=== PATIENT | female | born 1980 | race Two or more races ===

== ENCOUNTER 2021-11-30 01:38 | Observation (INO) | payer SELFPAY ==
[~2021-11-30] VITALS: Ht 167.6 cm; Wt 72.3 kg
[2021-11-30] MEDS ORDERED: IV NORMAL SALINE 1000ML BAG 1,000 ML IV ONE (02:30)
[2021-11-30] MEDS ORDERED: fentaNYL PF VIAL 100 MCG/2 ML VIAL IVP ONE (02:30)
[2021-11-30 02:36] LABS: BASO % 0 % (0-3); EOS # 0.1 x10^3/uL (0.0-0.7); EOS % 1 % (0-3); HEMATOCRIT 30.8 % (36.0-47.0); HEMOGLOBIN 10.3 g/dL (12.0-15.5); LYMPH # 1.9 x10^3/uL (1.0-4.8); LYMPH % 13 % (24-48); MEAN CORPUSCULAR HEMOGLOBIN 30 pg (25-35); MEAN CORPUSCULAR HGB CONC 33 g/dL (31-37); MEAN CORPUSCULAR VOLUME 90 fL (79-100); MONO # 0.6 x10^3/uL (0.0-1.1); MONO % 4 % (0-9); NEUT % 82 % (31-73); PLATELET COUNT 351 x10^3/uL (140-400); RED BLOOD COUNT 3.41 x10^6/uL (3.50-5.40); RED CELL DISTRIBUTION WIDTH 13.6 % (11.5-14.5); WHITE BLOOD COUNT 14.6 x10^3/uL (4.0-11.0)
[2021-11-30 02:45] LABS: PROTHROMBIN TIME PATIENT 13.5 SEC (11.7-14.0)
[2021-11-30 02:46] LABS: CALCIUM 8.1 mg/dL (8.5-10.1); CREATININE 0.8 mg/dL (0.6-1.0); GFR 79.9; POTASSIUM 3.7 mmol/L (3.5-5.1)
[2021-11-30 02:52] LABS: PREG TEST PT QUAL NEGATIVE (NEG)
[2021-11-30] MEDS ORDERED: IOHEXOL 300 MG/ML 100ML VIAL. IV ONE (03:15)
--- NOTE | 2021-11-30 03:40 | RAD ---
CT ABDOMEN+PELVIS W History: Abdominal pain, rectal pain and bleeding. Trauma. Comparison: None. Technique: CT of the abdomen and pelvis with intravenous contrast. Findings: Lung bases are clear. The liver contains a segment 8 1.8 cm hypodensity with peripheral nodular enhan cement consistent with hemangioma. Additional 6 mm hypoattenuation in segment 5 is too small to lionel cterize but most likely benign cyst or hemangioma. The gallbladder, pancreas, spleen, adrenal glands and kidneys are unremarkable. Stomach and small bowel are within normal limits. Normal appendix. No colonic wall thickening or imer colonic inflammatory changes. The bladder, uterus and adnexa are within normal limits. No free intraperitoneal air or free fluid. The abdominal pelvic vasculature is within normal limits. No adenopathy. Osseous structures and soft tissues are unremarkable. Impression: 1. No acute abdominopelvic findings. ------ Exposure: One or more of the following individualized dose reduction techniques were utilized for thi s examination: 1. Automated exposure control 2. Adjustment of the mA and/or kV according to patient size 3. Use of iterative reconstruction technique. Electronically signed by: Chris Nieto MD (11/30/2021 3:38 AM) [facility]
--- NOTE | 2021-11-30 03:59 | PHYS DOC ---
General Adult EDM: Chief Complaint: VAGINAL BLEEDING HPI: HPI: Patient is a 41 year old male who presents by private vehicle with heavy rectal bleeding. Symptoms began after having anal intercourse with her . She reports this was consensual. She is also currently on her period, but she denies any heavy vaginal bleeding. LMP prior to this was about 1 month ago. She does report some pelvic and abdominal discomfort. She reports that she has some heavy rectal bleeding and she has not been able to get it to stop at home. She denies any assault or nonconsensual intercourse. She denies that her anus was instrumented with anything other than her 's genitalia. She denies dizziness, syncope, fever, chills, nausea, vomiting. Review of Systems: Review of Systems: Constitutional: Denies fever or chills. [] HENT: Denies nasal congestion or sore throat. [] Respiratory: Denies cough or shortness of breath. [] Cardiovascular: Denies chest pain or edema. [] GI: She reports abdominal discomfort. Denies nausea, vomiting. Spontaneous and heavy bright red rectal bleeding : Denies urinary symptoms. Current vaginal bleeding with current menses. Musculoskeletal: Denies back pain or joint pain. [] Integument: Denies rash. [] Neurologic: Denies headache, focal weakness or sensory changes. Denies dizziness or syncope. Psychiatric: Anxiety as it pertains to current clinical condition. Heart Score: C/O Chest Pain: No Risk Factors: Risk Factors: DM, Current or recent (<one month) smoker, HTN, HLP, family history of CAD, obesity. Risk Scores: Score 0 - 3: 2.5% MACE over next 6 weeks - Discharge Home Score 4 - 6: 20.3% MACE over next 6 weeks - Admit for Clinical Observation Score 7 - 10: 72.7% MACE over next 6 weeks - Early Invasive Strategies Current Medications: Current Medications Medications (Trade) Dose Ordered Sig/[facility] Start Time Stop Time Status Last Admin Dose Admin Fentanyl Citrate (Fentanyl 2ml Vial) 50 mcg 1X ONCE 11/30/21 02:30 11/30/21 03:06 DC Iohexol (Omnipaque 300 Mg/ml) 75 ml 1X ONCE 11/30/21 03:15 11/30/21 03:16 DC 11/30/21 03:15 75 ML Sodium Chloride 1,000 ml @ 1,000 mls/hr 1X ONCE 11/30/21 02:30 11/30/21 03:29 DC 11/30/21 02:30 1,000 MLS/HR Allergies: Allergies: Allergies Coded Allergies Type Severity Reaction Last Updated Verified No Known Drug Allergies 11/30/21 No Physical Exam: PE: Constitutional: Well developed, well nourished, no acute distress, non-toxic appearance. [] HENT: Normocephalic, atraumatic Eyes: Sclera are anicteric, conjunctive are normal Neck: Trachea is midline Cardiovascular:Heart rate regular rhythm, +2 radial and +2 dorsalis pedis pulses Lungs & Thorax: Bilateral breath sounds clear to auscultation [] Abdomen: Abdomen is soft, nondistended, mildly tender to palpation diffusely in the lower abdominal and pelvic area. No focal tenderness. No guarding or rebound or rigidity. Normal bowel sounds. No palpable masses organomegaly. Rectal: There is a brisk amount of bright red blood spontaneously flowing from her rectum and anus. There are clots noted in her rectal vault. There does appear to be a rectal laceration noted on anoscopy, located at approximately 8:00. Skin: Warm, dry, no erythema, no rash. No diaphoresis, no pallor. Back: No tenderness, no CVA tenderness. Full range of motion. Extremities: No tenderness, no cyanosis, no clubbing, ROM intact, no edema. No limb deformity. No calf tenderness. Neurologic: Alert and oriented X 3, normal motor function, normal sensory function, no focal deficits noted. [] Psychologic: He is anxious but cooperative and pleasant. Current Patient Data: Labs: Laboratory Tests Test 11/30/21 02:15 White Blood Count 14.6 x10^3/uL (4.0-11.0) H Red Blood Count 3.41 x10^6/uL (3.50-5.40) L Hemoglobin 10.3 g/dL (12.0-15.5) L Hematocrit 30.8 % (36.0-47.0) L Mean Corpuscular Volume 90 fL (79-100) Mean Corpuscular Hemoglobin 30 pg (25-35) Mean Corpuscular Hemoglobin Concent 33 g/dL (31-37) Red Cell Distribution Width 13.6 % (11.5-14.5) Platelet Count 351 x10^3/uL (140-400) Neutrophils (%) (Auto) 82 % (31-73) H Lymphocytes (%) (Auto) 13 % (24-48) L Monocytes (%) (Auto) 4 % (0-9) Eosinophils (%) (Auto) 1 % (0-3) Basophils (%) (Auto) 0 % (0-3) Neutrophils # (Auto) 12.0 x10^3/uL (1.8-7.7) H Lymphocytes # (Auto) 1.9 x10^3/uL (1.0-4.8) Monocytes # (Auto) 0.6 x10^3/uL (0.0-1.1) Eosinophils # (Auto) 0.1 x10^3/uL (0.0-0.7) Basophils # (Auto) 0.0 x10^3/uL (0.0-0.2) Prothrombin Time 13.5 SEC (11.7-14.0) Prothrombin Time INR 1.1 (0.8-1.1) Activated Partial Thromboplast Time 28 SEC (24-38) Sodium Level 139 mmol/L (136-145) Potassium Level 3.7 mmol/L (3.5-5.1) Chloride Level 106 mmol/L (98-107) Carbon Dioxide Level 25 mmol/L (21-32) Anion Gap 8 (6-14) Blood Urea Nitrogen 14 mg/dL (7-20) Creatinine 0.8 mg/dL (0.6-1.0) Estimated GFR (Cockcroft-Gault) 79.9 Glucose Level 156 mg/dL (70-99) H Calcium Level 8.1 mg/dL (8.5-10.1) L Serum Test, Qualitative Negative (NEG) Laboratory Tests 11/30/21 02:15 Laboratory Tests 11/30/21 02:15 EKG: EKG: [] Radiology/Procedures: Radiology/Procedures: IMAGING REPORT Signed PATIENT: ERIKA CRUZ ACCOUNT: [id number] : 1980 LOCATION: ER AGE: 41 SEX: F EXAM STATUS: PRE ER ORD. PHYSICIAN: MICHAEL SORIA DO REASON: abd pain, rectal pain/bleeding, trauma, omni 300 75 ml iv PROCEDURE: CT ABD PELV W/ IV CONTRST ONLY CT ABDOMEN+PELVIS W History: Abdominal pain, rectal pain and bleeding. Trauma. Comparison: None. Technique: CT of the abdomen and pelvis with intravenous contrast. Findings: Lung bases are clear. The liver contains a segment 8 1.8 cm hypodensity with peripheral nodular enhancement consistent with hemangioma. Additional 6 mm hy poattenuation in segment 5 is too small to characterize but most likely benign cyst or hemangioma. The gallbladder, pancreas, spleen, adrenal glands and kidneys are unremarkable. Stomach and small bowel are within normal limits. Normal appendix. No colonic wall thickening or pericolonic inflammatory changes. The bladder, uterus and adnexa are within normal limits. No free intraperitoneal air or free fluid. The abdominal pelvic vasculature is within normal limits. No adenopathy. Osseous structures and soft tissues are unremarkable. Impression: 1. No acute abdominopelvic findings. ------ Exposure: One or more of the following individualized dose reduction techniques were utilized for this examination: 1. Automated exposure control 2. Adjustment of the mA and/or kV according to patient size 3. Use of iterative reconstruction technique. Electronically signed by: Chris Cartagena MD (11/30/2021 3:38 AM) [facility] DICTATED and SIGNED BY: CHRIS CARTAGENA MD DATE: 11/30/21329 Course & Med Decision Making: Course & Med Decision Making Pertinent Labs and Imaging studies reviewed. (See chart for details) Patient declined pain medication. She is given IV fluids. She is kept n.p.o. Initial hemoglobin is 10, she is unaware what her baseline hemoglobin is. She is hemodynamically stable. I examined her multiple times, and after several exams, the bleeding does appear to be improved and is well controlled at this time. I have recommended hospitalization, serial hemoglobin studies, general surgery and GI consultations. I spoke with Dr. Diego and Dr. Mondragon and informed them of the patient's pending admission and consults. The patient is accepted for admission by Dr. Duran. Ni Disclaimer: Ni Disclaimer: This electronic medical record was generated, in whole or in part, using a voice recognition dictation system. Departure Departure Impression: Primary Impression: Rectal bleeding Additional Impressions: Rectal laceration Qualified Codes: S36.63XA - Laceration of rectum, initial encounter Anemia Qualified Codes: D64.9 - Anemia, unspecified Disposition: 09 ADMITTED INPATIENT Admitting Physician: NATACHA (Dr. Duran) Condition: GUARDED ESTELLA,MICHAEL Reilly DO Nov 30, 2021 03:59
[2021-11-30] MEDS ORDERED: fentaNYL PF VIAL 100 MCG/2 ML VIAL IVP PRN (06:00)
[2021-11-30] MEDS ORDERED: ONDANSETRON PF 4 MG/2 ML VIAL. IVP PRN ×2 (06:00→08:45)
[2021-11-30] MEDS ORDERED: IV DEXTROSE 5 %-0.45 % NACL 1,000 ML IV ONE (06:00)
[2021-11-30 06:01] VITALS: BP 91/51
--- NOTE | 2021-11-30 07:58 | NUR ---
Consults called to both GI and general surgery, patient continues to bleed large amounts, CBC redrawn at this time, patient hypotensive, but otherwise vitals stable. Patient advised of strict bedrest status, at bedside, will continue to monitor.
[2021-11-30 08:00] LABS: BASO % 0 % (0-3); EOS % 1 % (0-3); HEMATOCRIT 26.9 % (36.0-47.0); HEMOGLOBIN 9.1 g/dL (12.0-15.5); LYMPH # 1.8 x10^3/uL (1.0-4.8); LYMPH % 19 % (24-48); MEAN CORPUSCULAR HEMOGLOBIN 30 pg (25-35); MEAN CORPUSCULAR HGB CONC 34 g/dL (31-37); MEAN CORPUSCULAR VOLUME 90 fL (79-100); MONO # 0.5 x10^3/uL (0.0-1.1); MONO % 5 % (0-9); NEUT # 7.2 x10^3/uL (1.8-7.7); NEUT % 76 % (31-73); PLATELET COUNT 267 x10^3/uL (140-400); RED BLOOD COUNT 2.99 x10^6/uL (3.50-5.40); RED CELL DISTRIBUTION WIDTH 13.7 % (11.5-14.5); WHITE BLOOD COUNT 9.5 x10^3/uL (4.0-11.0)
--- NOTE | 2021-11-30 08:34 | PDOC1 ---
History and Physical Date of Service: DOS: DATE: 11/30/21 TIME: 08:27 Chief Complaint: Chief Complain: Rectal bleeding. History of Present Illness: HPI: 41 year old male who presents by private vehicle with heavy rectal bleeding. Symptoms began after having consensual anal intercourse with her . She is also currently on her period, but she denies any heavy vaginal bleeding. LMP prior to this was about 1 month ago. She does report some pelvic and abdominal discomfort. She reports that she has some heavy rectal bleeding and she has not been able to get it to stop at home. She denies any intentional trauma or harm from significant other. She denies that her anus was instrumented with anything other than her 's genitalia. She denies dizziness, syncope, fever, chills, nausea, vomiting. Past Medical/Surgical History: PMH/PSH: No significant past medical or surgical history Allergies: Allergies: Coded Allergies: No Known Drug Allergies (Unverified , 11/30/21) Family History: Family History: Reviewed with no relative findings in the chart Social History: Social History: Denies any alcohol, drug or tobacco abuse Current Medications: Current Medications Current Medications Sodium Chloride 1,000 ml @ 1,000 mls/hr 1X ONCE IV Last administered on 11/30/21at 02:30; Start 11/30/21 at 02:30; Stop 11/30/21 at 03:29; Status DC Fentanyl Citrate (Fentanyl 2ml Vial) 50 mcg 1X ONCE IVP ; Start 11/30/21 at 02:30; Stop 11/30/21 at 03:06; Status DC Iohexol (Omnipaque 300 Mg/ml) 75 ml 1X ONCE IV Last administered on 11/30/21at 03:15; Start 11/30/21 at 03:15; Stop 11/30/21 at 03:16; Status DC Ondansetron HCl (Zofran) 4 mg PRN Q8HRS PRN IVP NAUSEA/VOMITING; Start 11/30/21 at 06:00; Stop 12/01/21 at 05:59 Dextrose/Sodium Chloride 1,000 ml @ 100 mls/hr 1X ONCE IV Last administered on 11/30/21at 07:17; Start 11/30/21 at 06:00; Stop 11/30/21 at 15:59 Fentanyl Citrate (Fentanyl 2ml Vial) 50 mcg PRN Q2HRS PRN IVP pain; Start 11/30/21 at 06:00 ROS: Review of Systems Review of System REVIEW OF SYSTEMS: GENERAL: Denies weakness SKIN: No bruising, hair changes or rashes. EYES: No blurred, double or loss of vision. NOSE AND THROAT: No history of nosebleeds, hoarseness or sore throat. HEART: No history of palpitations, chest pain or shortness of breath on exertion. LUNGS: Denies cough, hemoptysis, wheezing or shortness of breath. GASTROINTESTINAL: Rectal bleeding GENITOURINARY: No history of frequency, urgency, hesitancy or nocturia. NEUROLOGIC: Denies history of numbness, tingling, or tremor. PSYCHIATRIC: No history of panic, anxiety or depression. ENDOCRINE: No history of heat or cold intolerance, polyuria or polydipsia. EXTREMITIES: Denies joint pain, pain on walking or stiffness. Physical Exam: Vital Signs: Vital Signs Date Time Temp Pulse Resp B/P (MAP) Pulse Ox O2 Delivery O2 Flow Rate FiO2 11/30/21 06:01 98.3 78 20 91/51 (64) 100 Room Air 98.3 Physcial Exam: General: Well developed, well nourished, no acute distress, well appearing HEENT: Pupils equally round and reactive to light, EOMI, no discharge, normal conjunctiva Neck: Supple, no nuchal rigidity, no JVD, trachea midline, no tenderness Cardiac: RRR, no murmurs, no gallops, no rubs Chest/Lungs: CTAB, no wheeze, no rhonchi, no crackles Abdomen: soft, non-distended, no guarding, no peritoneal signs, non-tender Back: No tenderness Extremities: no edema, pulses intact, non-tender,capillary refill <3 sec bilateral upper and lower extremities, Neuro: Alert and oriented x 4, no focal deficits, normal speech Rectal: There is a brisk amount of bright red blood spontaneously flowing from her anus. There does appear to be a rectal laceration noted on anoscopy, located at approximately 8:00. Done by ED physician Labs: Labs: Laboratory Tests Test 11/30/21 02:15 11/30/21 07:30 White Blood Count 14.6 x10^3/uL (4.0-11.0) 9.5 x10^3/uL (4.0-11.0) Red Blood Count 3.41 x10^6/uL (3.50-5.40) 2.99 x10^6/uL (3.50-5.40) Hemoglobin 10.3 g/dL (12.0-15.5) 9.1 g/dL (12.0-15.5) Hematocrit 30.8 % (36.0-47.0) 26.9 % (36.0-47.0) Mean Corpuscular Volume 90 fL (79-100) 90 fL (79-100) Mean Corpuscular Hemoglobin 30 pg (25-35) 30 pg (25-35) Mean Corpuscular Hemoglobin Concent 33 g/dL (31-37) 34 g/dL (31-37) Red Cell Distribution Width 13.6 % (11.5-14.5) 13.7 % (11.5-14.5) Platelet Count 351 x10^3/uL (140-400) 267 x10^3/uL (140-400) Neutrophils (%) (Auto) 82 % (31-73) 76 % (31-73) Lymphocytes (%) (Auto) 13 % (24-48) 19 % (24-48) Monocytes (%) (Auto) 4 % (0-9) 5 % (0-9) Eosinophils (%) (Auto) 1 % (0-3) 1 % (0-3) Basophils (%) (Auto) 0 % (0-3) 0 % (0-3) Neutrophils # (Auto) 12.0 x10^3/uL (1.8-7.7) 7.2 x10^3/uL (1.8-7.7) Lymphocytes # (Auto) 1.9 x10^3/uL (1.0-4.8) 1.8 x10^3/uL (1.0-4.8) Monocytes # (Auto) 0.6 x10^3/uL (0.0-1.1) 0.5 x10^3/uL (0.0-1.1) Eosinophils # (Auto) 0.1 x10^3/uL (0.0-0.7) 0.0 x10^3/uL (0.0-0.7) Basophils # (Auto) 0.0 x10^3/uL (0.0-0.2) 0.0 x10^3/uL (0.0-0.2) Prothrombin Time 13.5 SEC (11.7-14.0) Prothromb Time International Ratio 1.1 (0.8-1.1) Activated Partial Thromboplast Time 28 SEC (24-38) Sodium Level 139 mmol/L (136-145) Potassium Level 3.7 mmol/L (3.5-5.1) Chloride Level 106 mmol/L (98-107) Carbon Dioxide Level 25 mmol/L (21-32) Anion Gap 8 (6-14) Blood Urea Nitrogen 14 mg/dL (7-20) Creatinine 0.8 mg/dL (0.6-1.0) Estimated GFR (Cockcroft-Gault) 79.9 Glucose Level 156 mg/dL (70-99) Calcium Level 8.1 mg/dL (8.5-10.1) Serum Test, Qualitative Negative (NEG) Laboratory Tests Test 11/30/21 02:15 11/30/21 07:30 White Blood Count 14.6 x10^3/uL (4.0-11.0) 9.5 x10^3/uL (4.0-11.0) Red Blood Count 3.41 x10^6/uL (3.50-5.40) 2.99 x10^6/uL (3.50-5.40) Hemoglobin 10.3 g/dL (12.0-15.5) 9.1 g/dL (12.0-15.5) Hematocrit 30.8 % (36.0-47.0) 26.9 % (36.0-47.0) Mean Corpuscular Volume 90 fL (79-100) 90 fL (79-100) Mean Corpuscular Hemoglobin 30 pg (25-35) 30 pg (25-35) Mean Corpuscular Hemoglobin Concent 33 g/dL (31-37) 34 g/dL (31-37) Red Cell Distribution Width 13.6 % (11.5-14.5) 13.7 % (11.5-14.5) Platelet Count 351 x10^3/uL (140-400) 267 x10^3/uL (140-400) Neutrophils (%) (Auto) 82 % (31-73) 76 % (31-73) Lymphocytes (%) (Auto) 13 % (24-48) 19 % (24-48) Monocytes (%) (Auto) 4 % (0-9) 5 % (0-9) Eosinophils (%) (Auto) 1 % (0-3) 1 % (0-3) Basophils (%) (Auto) 0 % (0-3) 0 % (0-3) Neutrophils # (Auto) 12.0 x10^3/uL (1.8-7.7) 7.2 x10^3/uL (1.8-7.7) Lymphocytes # (Auto) 1.9 x10^3/uL (1.0-4.8) 1.8 x10^3/uL (1.0-4.8) Monocytes # (Auto) 0.6 x10^3/uL (0.0-1.1) 0.5 x10^3/uL (0.0-1.1) Eosinophils # (Auto) 0.1 x10^3/uL (0.0-0.7) 0.0 x10^3/uL (0.0-0.7) Basophils # (Auto) 0.0 x10^3/uL (0.0-0.2) 0.0 x10^3/uL (0.0-0.2) Prothrombin Time 13.5 SEC (11.7-14.0) Prothromb Time International Ratio 1.1 (0.8-1.1) Activated Partial Thromboplast Time 28 SEC (24-38) Sodium Level 139 mmol/L (136-145) Potassium Level 3.7 mmol/L (3.5-5.1) Chloride Level 106 mmol/L (98-107) Carbon Dioxide Level 25 mmol/L (21-32) Anion Gap 8 (6-14) Blood Urea Nitrogen 14 mg/dL (7-20) Creatinine 0.8 mg/dL (0.6-1.0) Estimated GFR (Cockcroft-Gault) 79.9 Glucose Level 156 mg/dL (70-99) Calcium Level 8.1 mg/dL (8.5-10.1) Serum Test, Qualitative Negative (NEG) Images: Images PROCEDURE: CT ABD PELV W/ IV CONTRST ONLY CT ABDOMEN+PELVIS W History: Abdominal pain, rectal pain and bleeding. Trauma. Comparison: None. Technique: CT of the abdomen and pelvis with intravenous contrast. Findings: Lung bases are clear. The liver contains a segment 8 1.8 cm hypodensity with peripheral nodular enhancement consistent with hemangioma. Additional 6 mm hypoattenuation in segment 5 is too small to characterize but most likely benign cyst or hemangioma. The gallbladder, pancreas, spleen, adrenal glands and kidneys are unremarkable. Stomach and small bowel are within normal limits. Normal appendix. No colonic wall thickening or pericolonic inflammatory changes. The bladder, uterus and adnexa are within normal limits. No free intraperitoneal air or free fluid. The abdominal pelvic vasculature is within normal limits. No adenopathy. Osseous structures and soft tissues are unremarkable. Impression: 1. No acute abdominopelvic findings. Assessment/Plan Assessment/Plan Iatrogenic rectal laceration Anemia secondary to acute blood loss Admit to hospitalist service for further management Continue IV fluids Continuous pressure pack to anal region Contraindicated for DVT prophylaxis Regular diet CODE STATUS full Discussed with RN and SW Disposition inpatient management as above, pending GI and surgery evaluation DPOA: Justifications for Admission Other Justification ARBEN BARAKAT MD Nov 30, 2021 08:34
[2021-11-30] MEDS: IV NORMAL SALINE 1000ML BAG 1,000 ML IV SCH ×2 (08:45→16:11)
[2021-11-30] MEDS ORDERED: DOCUSATE SODIUM 100 MG CAPSULE. PO PRN (08:45)
[2021-11-30] MEDS ORDERED: diphenhydrAMINE HCL 25 MG CAPSULE PO PRN ×2 (08:45)
[2021-11-30] MEDS ORDERED: ZOLPIDEM 5 MG TABLET. PO PRN (08:45)
[2021-11-30] MEDS ORDERED: DEXTROSE 50% 25 GM / 50ML DISP.SYRIN. IV PRN (08:45)
[2021-11-30] MEDS ORDERED: MORPHINE SULFATE 2 MG/ML INJ. IVP PRN (08:45)
[2021-11-30] MEDS ORDERED: diphenhydrAMINE 50 MG/ML VIAL IVP PRN (08:45)
[2021-11-30] MEDS ORDERED: ACETAMINOPHEN 325 MG TABLET. PO PRN (08:45)
[2021-11-30] MEDS ORDERED: SENNOSIDES 8.6 MG TABLET PO PRN (08:45)
[2021-11-30] MEDS ORDERED: MORPHINE SULFATE 2 MG/ML INJ. IV PRN (08:45)
[2021-11-30] MEDS ORDERED: LORazepam 0.5 MG TABLET PO PRN (08:45)
[2021-11-30] MEDS ORDERED: oxyCODONE/APAP 5/325 1 TAB TABLET PO PRN ×2 (08:45)
[2021-11-30] MEDS ORDERED: PROCHLORPERAZINE 10 MG/2 ML VIAL. IV PRN (08:45)
--- NOTE | 2021-11-30 09:32 | PDOC2 ---
CONSULT Date of Consult Date of Consult DATE: 11/30/21 TIME: 09:26 Reason for Consult Reason for Consult: Rectal bleeding Referring Physician Referring Physician: Roger Identification/Chief Complaint Chief Complaint Rectal bleeding after consensual sex Source Source: Chart review, Patient History of Present Illness Reason for Visit: 41-year-old female who developed rectal bleeding after having anal sex with her she denies any instrumentation by foreign object. She does describe some pelvic discomfort no nausea no vomiting. Came to the emergency department further evaluation CT scan done at that time does not show any free air or intra-abdominal injury Past Medical History Cardiovascular: No pertinent hx Pulmonary: No pertinent hx GI: No pertinent hx Heme/Onc: No pertinent hx Hepatobiliary: No pertinent hx Psych: No pertinent hx Rheumatologic: No pertinent hx Infectious disease: No pertinent hx ENT: No pertinent hx Renal/: No pertinent hx Endocrine: No pertinent hx Dermatology: No pertinent hx Past Surgical History Past Surgical History: No pertinent history Family History Family History: No Significant Social History No ALCOHOL: none Drugs: None Lives: with Family Current Problem List Problem List Problems Medical Problems: (1) Anemia Status: Acute Current Medications Current Medications Current Medications Sodium Chloride 1,000 ml @ 1,000 mls/hr 1X ONCE IV Last administered on 11/30/21at 02:30; Start 11/30/21 at 02:30; Stop 11/30/21 at 03:29; Status DC Fentanyl Citrate (Fentanyl 2ml Vial) 50 mcg 1X ONCE IVP ; Start 11/30/21 at 02:30; Stop 11/30/21 at 03:06; Status DC Iohexol (Omnipaque 300 Mg/ml) 75 ml 1X ONCE IV Last administered on 11/30/21at 03:15; Start 11/30/21 at 03:15; Stop 11/30/21 at 03:16; Status DC Ondansetron HCl (Zofran) 4 mg PRN Q8HRS PRN IVP NAUSEA/VOMITING; Start 11/30/21 at 06:00; Stop 11/30/21 at 08:38; Status DC Dextrose/Sodium Chloride 1,000 ml @ 100 mls/hr 1X ONCE IV Last administered on 11/30/21at 07:17; Start 11/30/21 at 06:00; Stop 11/30/21 at 15:59 Fentanyl Citrate (Fentanyl 2ml Vial) 50 mcg PRN Q2HRS PRN IVP pain Last administered on 11/30/21at 08:33; Start 11/30/21 at 06:00 Sennosides (Senna) 17.2 mg PRN BID PRN PO CONSTIPATION; Start 11/30/21 at 08:45 Docusate Sodium (Colace) 100 mg PRN DAILY PRN PO HARD STOOLS; Start 11/30/21 at 08:45 Ondansetron HCl (Zofran) 4 mg PRN Q6HRS PRN IVP NAUSEA/VOMITING, 1st CHOICE; Start 11/30/21 at 08:45 Dextrose (Dextrose 50%-Water Syringe) 12.5 gm PRN Q15MIN PRN IV SEE COMMENTS; Start 11/30/21 at 08:45 Sodium Chloride 1,000 ml @ 100 mls/hr Q10H IV ; Start 11/30/21 at 08:45 Acetaminophen (Tylenol) 650 mg PRN Q4HRS PRN PO TEMP OVER 100.4F OR MILD PAIN; Start 11/30/21 at 08:45 Lorazepam (Ativan) 0.5 mg PRN Q6HRS PRN PO ANXIETY / AGITATION; Start 11/30/21 at 08:45 Lorazepam (Ativan Inj) 0.25 mg PRN Q4HRS PRN IV ANXIETY / AGITATION; Start 11/30/21 at 08:45 Oxycodone/ Acetaminophen (Percocet 5/325) 1 tab PRN Q4HRS PRN PO MILD PAIN, 1ST CHOICE; Start 11/30/21 at 08:45 Oxycodone/ Acetaminophen (Percocet 5/325) 2 tab PRN Q4HRS PRN PO MODERATE PAIN, SEVERE PAIN; Start 11/30/21 at 08:45 Morphine Sulfate (Morphine Sulfate) 1 mg PRN Q1HR PRN IV PAIN; Start 11/30/21 at 08:45 Morphine Sulfate (Morphine Sulfate) 2 mg PRN Q2HR PRN IVP SEVERE PAIN 7-10; Start 11/30/21 at 08:45; Stop 12/01/21 at 08:44 Prochlorperazine Edisylate (Compazine) 10 mg PRN Q6HRS PRN IV NAUSEA/VOMITING, 2nd CHOICE; Start 11/30/21 at 08:45 Diphenhydramine HCl (Benadryl) 25 mg PRN Q6HRS PRN IVP ITCHING; Start 11/30/21 at 08:45 Diphenhydramine HCl (Benadryl) 25 mg PRN Q6HRS PRN PO ITCHING; Start 11/30/21 at 08:45 Diphenhydramine HCl (Benadryl) 25 mg PRN QHS PRN PO INSOMNIA, 1st CHOICE; Start 11/30/21 at 08:45 Zolpidem Tartrate (Ambien) 2.5 mg PRN QHS PRN PO INSOMNIA, 2nd CHOICE; Start 11/30/21 at 08:45 Allergies Allergies: Coded Allergies: No Known Drug Allergies (Unverified , 11/30/21) ROS General: No: Chills, Night Sweats, Fatigue, Malaise, Appetite, Other PSYCHOLOGICAL ROS: No: Anxiety, Behavioral Disorder, Concentration difficultie, Decreased libido, Depression, Disorientation, Hallucinations, Hostility, Irritablity, Memory difficulties, Mood Swings, Obsessive thoughts, Physical abuse, Sexual abuse, Sleep disturbances, Suicidal ideation, Other Eyes: No Blurry vision, No Decreased vision, No Double vision, No Dry eyes, No Excessive tearing, No Eye Pain, No Itchy Eyes, No Loss of vision, No Photophobia, No Scotomata, No Uses contacts, No Uses glasses, No Other HEENT: No: Heacaches, Visual Changes, Hearing change, Nasal congestion, Nasal discharge, Oral lesions, Sinus pain, Sore Throat, Epistaxis, Sneezing, Snoring, Tinnitus, Vertigo, Vocal changes, Other ALLERGY AND IMMUNOLOGY: No: Hives, Insect Bite Sensitivity, Itchy/Watery Eyes, Nasal Congestion, Post Nasal Drip, Seasonal Allergies, Other Hematological and Lymphatic: No: Bleeding Problems, Blood Clots, Blood Transfusions, Brusing, Night Sweats, Pallor, Swollen Lymph Nodes, Other ENDOCRINE: No: Breast Changes, Galactorrhea, Hair Pattern Changes, Hot Flashes, Malaise/lethargy, Mood Swings, Palpitations, Polydipsia/polyuria, Skin Changes, Temperature Intolerance, Unexpected Weight Changes, Other Breast: No New/Changing Breast Lumps, No Nipple changes, No Nipple discharge, No Other Respiratory: No: Cough, Hemoptysis, Orthopnea, Pleuritic Pain, Shortness of breath, SOB with excertion, Sputum Changes, Stridor, Tachypnea, Wheezing, Other Cardiovascular: No Chest Pain, No Palpitations, No Orthopnea, No Paroxysmal Noc. Dyspnea, No Edema, No Lt Headedness, No Other Gastrointestinal: Yes Abdominal Pain, Yes Hematochezia Genitourinary: No Dysuria, No Frequency, No Incontinence, No Hematuria, No Retention, No Discharge, No Urgency, No Pain, No Flank Pain, No Other, No , No , No , No , No , No , No Musculoskeletal: No Gait Disturbance, No Joint Pain, No Joint Stiffness, No Liz int Swelling, No Muscle Pain, No Muscular Weakness, No Pain In:, No Swelling In:, No Other Neurological: No Behavorial Changes, No Bowel/Bladder ControlChng, No Confusion, No Dizziness, No Gait Disturbance, No Headaches, No Impaired C oord/balance, No Memory Loss, No Numbness/Tingling, No Seizures, No Speech Problems, No Tremors, No Visual Changes, No Weakness, No Other Skin: No Dry Skin, No Eczema, No Hair Changes, No Lumps, No Mole Changes, No Mottling, No Nail Changes, No Pruritus, No Rash, No Skin Lesion Changes, No Other, No Acne Physical Exam General: Alert, Oriented X3, Cooperative, mild distress HEENT: Atraumatic, PERRLA, EOMI Lungs: Clear to auscultation, Normal air movement Heart: Regular rate, No murmurs Abdomen: Normal bowel sounds, Soft, Other (Some perirectal blood no active bleeding) Extremities: No edema Skin: No significant lesion Neuro: Normal speech Psych/Mental Status: Mental status NL Vitals VITALS Vital Signs Date Time Temp Pulse Resp B/P (MAP) Pulse Ox O2 Delivery O2 Flow Rate FiO2 11/30/21 08:33 19 Room Air 11/30/21 06:01 98.3 78 91/51 (64) 100 98.3 Labs Labs Laboratory Tests Test 11/30/21 02:15 11/30/21 07:30 White Blood Count 14.6 x10^3/uL (4.0-11.0) 9.5 x10^3/uL (4.0-11.0) Red Blood Count 3.41 x10^6/uL (3.50-5.40) 2.99 x10^6/uL (3.50-5.40) Hemoglobin 10.3 g/dL (12.0-15.5) 9.1 g/dL (12.0-15.5) Hematocrit 30.8 % (36.0-47.0) 26.9 % (36.0-47.0) Mean Corpuscular Volume 90 fL (79-100) 90 fL (79-100) Mean Corpuscular Hemoglobin 30 pg (25-35) 30 pg (25-35) Mean Corpuscular Hemoglobin Concent 33 g/dL (31-37) 34 g/dL (31-37) Red Cell Distribution Width 13.6 % (11.5-14.5) 13.7 % (11.5-14.5) Platelet Count 351 x10^3/uL (140-400) 267 x10^3/uL (140-400) Neutrophils (%) (Auto) 82 % (31-73) 76 % (31-73) Lymphocytes (%) (Auto) 13 % (24-48) 19 % (24-48) Monocytes (%) (Auto) 4 % (0-9) 5 % (0-9) Eosinophils (%) (Auto) 1 % (0-3) 1 % (0-3) Basophils (%) (Auto) 0 % (0-3) 0 % (0-3) Neutrophils # (Auto) 12.0 x10^3/uL (1.8-7.7) 7.2 x10^3/uL (1.8-7.7) Lymphocytes # (Auto) 1.9 x10^3/uL (1.0-4.8) 1.8 x10^3/uL (1.0-4.8) Monocytes # (Auto) 0.6 x10^3/uL (0.0-1.1) 0.5 x10^3/uL (0.0-1.1) Eosinophils # (Auto) 0.1 x10^3/uL (0.0-0.7) 0.0 x10^3/uL (0.0-0.7) Basophils # (Auto) 0.0 x10^3/uL (0.0-0.2) 0.0 x10^3/uL (0.0-0.2) Prothrombin Time 13.5 SEC (11.7-14.0) Prothromb Time International Ratio 1.1 (0.8-1.1) Activated Partial Thromboplast Time 28 SEC (24-38) Sodium Level 139 mmol/L (136-145) Potassium Level 3.7 mmol/L (3.5-5.1) Chloride Level 106 mmol/L (98-107) Carbon Dioxide Level 25 mmol/L (21-32) Anion Gap 8 (6-14) Blood Urea Nitrogen 14 mg/dL (7-20) Creatinine 0.8 mg/dL (0.6-1.0) Estimated GFR (Cockcroft-Gault) 79.9 Glucose Level 156 mg/dL (70-99) Calcium Level 8.1 mg/dL (8.5-10.1) Serum Test, Qualitative Negative (NEG) Laboratory Tests Test 11/30/21 02:15 11/30/21 07:30 White Blood Count 14.6 x10^3/uL (4.0-11.0) 9.5 x10^3/uL (4.0-11.0) Red Blood Count 3.41 x10^6/uL (3.50-5.40) 2.99 x10^6/uL (3.50-5.40) Hemoglobin 10.3 g/dL (12.0-15.5) 9.1 g/dL (12.0-15.5) Hematocrit 30.8 % (36.0-47.0) 26.9 % (36.0-47.0) Mean Corpuscular Volume 90 fL (79-100) 90 fL (79-100) Mean Corpuscular Hemoglobin 30 pg (25-35) 30 pg (25-35) Mean Corpuscular Hemoglobin Concent 33 g/dL (31-37) 34 g/dL (31-37) Red Cell Distribution Width 13.6 % (11.5-14.5) 13.7 % (11.5-14.5) Platelet Count 351 x10^3/uL (140-400) 267 x10^3/uL (140-400) Neutrophils (%) (Auto) 82 % (31-73) 76 % (31-73) Lymphocytes (%) (Auto) 13 % (24-48) 19 % (24-48) Monocytes (%) (Auto) 4 % (0-9) 5 % (0-9) Eosinophils (%) (Auto) 1 % (0-3) 1 % (0-3) Basophils (%) (Auto) 0 % (0-3) 0 % (0-3) Neutrophils # (Auto) 12.0 x10^3/uL (1.8-7.7) 7.2 x10^3/uL (1.8-7.7) Lymphocytes # (Auto) 1.9 x10^3/uL (1.0-4.8) 1.8 x10^3/uL (1.0-4.8) Monocytes # (Auto) 0.6 x10^3/uL (0.0-1.1) 0.5 x10^3/uL (0.0-1.1) Eosinophils # (Auto) 0.1 x10^3/uL (0.0-0.7) 0.0 x10^3/uL (0.0-0.7) Basophils # (Auto) 0.0 x10^3/uL (0.0-0.2) 0.0 x10^3/uL (0.0-0.2) Prothrombin Time 13.5 SEC (11.7-14.0) Prothromb Time International Ratio 1.1 (0.8-1.1) Activated Partial Thromboplast Time 28 SEC (24-38) Sodium Level 139 mmol/L (136-145) Potassium Level 3.7 mmol/L (3.5-5.1) Chloride Level 106 mmol/L (98-107) Carbon Dioxide Level 25 mmol/L (21-32) Anion Gap 8 (6-14) Blood Urea Nitrogen 14 mg/dL (7-20) Creatinine 0.8 mg/dL (0.6-1.0) Estimated GFR (Cockcroft-Gault) 79.9 Glucose Level 156 mg/dL (70-99) Calcium Level 8.1 mg/dL (8.5-10.1) Serum Test, Qualitative Negative (NEG) Assessment/Plan Assessment/Plan Rectal trauma does not appear to extend beyond the superficial mucosa. Healing should occur without needing intervention will monitor closely ANURAG MERINO MD Nov 30, 2021 09:32
[2021-11-30 11:00] VITALS: BP 83/35
[2021-11-30 11:14] LABS: BASO % 0 % (0-3); EOS # 0.1 x10^3/uL (0.0-0.7); EOS % 1 % (0-3); HEMATOCRIT 26.1 % (36.0-47.0); HEMOGLOBIN 8.8 g/dL (12.0-15.5); LYMPH # 1.3 x10^3/uL (1.0-4.8); LYMPH % 17 % (24-48); MEAN CORPUSCULAR HEMOGLOBIN 30 pg (25-35); MEAN CORPUSCULAR HGB CONC 34 g/dL (31-37); MEAN CORPUSCULAR VOLUME 90 fL (79-100); MONO # 0.5 x10^3/uL (0.0-1.1); MONO % 7 % (0-9); NEUT # 5.9 x10^3/uL (1.8-7.7); NEUT % 76 % (31-73); PLATELET COUNT 243 x10^3/uL (140-400); RED CELL DISTRIBUTION WIDTH 14.1 % (11.5-14.5); WHITE BLOOD COUNT 7.8 x10^3/uL (4.0-11.0)
--- NOTE | 2021-11-30 12:52 | PDOC ---
G I PROGRESS NOTE Reason for Follow-up Hematochezia s/p anal intercourse Subjective Bleeding has stopped/pain improving Physical Exam Lungs clear' CV S1 S2 ABd +BS, soft, nontender Review of Relevant I have reviewed the following items lilia (where applicable) has been applied. Labs Laboratory Tests Test 11/30/21 02:15 11/30/21 07:30 11/30/21 10:30 White Blood Count 14.6 x10^3/uL (4.0-11.0) 9.5 x10^3/uL (4.0-11.0) 7.8 x10^3/uL (4.0-11.0) Red Blood Count 3.41 x10^6/uL (3.50-5.40) 2.99 x10^6/uL (3.50-5.40) 2.90 x10^6/uL (3.50-5.40) Hemoglobin 10.3 g/dL (12.0-15.5) 9.1 g/dL (12.0-15.5) 8.8 g/dL (12.0-15.5) Hematocrit 30.8 % (36.0-47.0) 26.9 % (36.0-47.0) 26.1 % (36.0-47.0) Mean Corpuscular Volume 90 fL (79-100) 90 fL (79-100) 90 fL (79-100) Mean Corpuscular Hemoglobin 30 pg (25-35) 30 pg (25-35) 30 pg (25-35) Mean Corpuscular Hemoglobin Concent 33 g/dL (31-37) 34 g/dL (31-37) 34 g/dL (31-37) Red Cell Distribution Width 13.6 % (11.5-14.5) 13.7 % (11.5-14.5) 14.1 % (11.5-14.5) Platelet Count 351 x10^3/uL (140-400) 267 x10^3/uL (140-400) 243 x10^3/uL (140-400) Neutrophils (%) (Auto) 82 % (31-73) 76 % (31-73) 76 % (31-73) Lymphocytes (%) (Auto) 13 % (24-48) 19 % (24-48) 17 % (24-48) Monocytes (%) (Auto) 4 % (0-9) 5 % (0-9) 7 % (0-9) Eosinophils (%) (Auto) 1 % (0-3) 1 % (0-3) 1 % (0-3) Basophils (%) (Auto) 0 % (0-3) 0 % (0-3) 0 % (0-3) Neutrophils # (Auto) 12.0 x10^3/uL (1.8-7.7) 7.2 x10^3/uL (1.8-7.7) 5.9 x10^3/uL (1.8-7.7) Lymphocytes # (Auto) 1.9 x10^3/uL (1.0-4.8) 1.8 x10^3/uL (1.0-4.8) 1.3 x10^3/uL (1.0-4.8) Monocytes # (Auto) 0.6 x10^3/uL (0.0-1.1) 0.5 x10^3/uL (0.0-1.1) 0.5 x10^3/uL (0.0-1.1) Eosinophils # (Auto) 0.1 x10^3/uL (0.0-0.7) 0.0 x10^3/uL (0.0-0.7) 0.1 x10^3/uL (0.0-0.7) Basophils # (Auto) 0.0 x10^3/uL (0.0-0.2) 0.0 x10^3/uL (0.0-0.2) 0.0 x10^3/uL (0.0-0.2) Prothrombin Time 13.5 SEC (11.7-14.0) Prothromb Time International Ratio 1.1 (0.8-1.1) Activated Partial Thromboplast Time 28 SEC (24-38) Sodium Level 139 mmol/L (136-145) Potassium Level 3.7 mmol/L (3.5-5.1) Chloride Level 106 mmol/L (98-107) Carbon Dioxide Level 25 mmol/L (21-32) Anion Gap 8 (6-14) Blood Urea Nitrogen 14 mg/dL (7-20) Creatinine 0.8 mg/dL (0.6-1.0) Estimated GFR (Cockcroft-Gault) 79.9 Glucose Level 156 mg/dL (70-99) Calcium Level 8.1 mg/dL (8.5-10.1) Serum Test, Qualitative Negative (NEG) Laboratory Tests Test 11/30/21 02:15 11/30/21 07:30 11/30/21 10:30 White Blood Count 14.6 x10^3/uL (4.0-11.0) 9.5 x10^3/uL (4.0-11.0) 7.8 x10^3/uL (4.0-11.0) Red Blood Count 3.41 x10^6/uL (3.50-5.40) 2.99 x10^6/uL (3.50-5.40) 2.90 x10^6/uL (3.50-5.40) Hemoglobin 10.3 g/dL (12.0-15.5) 9.1 g/dL (12.0-15.5) 8.8 g/dL (12.0-15.5) Hematocrit 30.8 % (36.0-47.0) 26.9 % (36.0-47.0) 26.1 % (36.0-47.0) Mean Corpuscular Volume 90 fL (79-100) 90 fL (79-100) 90 fL (79-100) Mean Corpuscular Hemoglobin 30 pg (25-35) 30 pg (25-35) 30 pg (25-35) Mean Corpuscular Hemoglobin Concent 33 g/dL (31-37) 34 g/dL (31-37) 34 g/dL (31-37) Red Cell Distribution Width 13.6 % (11.5-14.5) 13.7 % (11.5-14.5) 14.1 % (11.5-14.5) Platelet Count 351 x10^3/uL (140-400) 267 x10^3/uL (140-400) 243 x10^3/uL (140-400) Neutrophils (%) (Auto) 82 % (31-73) 76 % (31-73) 76 % (31-73) Lymphocytes (%) (Auto) 13 % (24-48) 19 % (24-48) 17 % (24-48) Monocytes (%) (Auto) 4 % (0-9) 5 % (0-9) 7 % (0-9) Eosinophils (%) (Auto) 1 % (0-3) 1 % (0-3) 1 % (0-3) Basophils (%) (Auto) 0 % (0-3) 0 % (0-3) 0 % (0-3) Neutrophils # (Auto) 12.0 x10^3/uL (1.8-7.7) 7.2 x10^3/uL (1.8-7.7) 5.9 x10^3/uL (1.8-7.7) Lymphocytes # (Auto) 1.9 x10^3/uL (1.0-4.8) 1.8 x10^3/uL (1.0-4.8) 1.3 x10^3/uL (1.0-4.8) Monocytes # (Auto) 0.6 x10^3/uL (0.0-1.1) 0.5 x10^3/uL (0.0-1.1) 0.5 x10^3/uL (0.0-1.1) Eosinophils # (Auto) 0.1 x10^3/uL (0.0-0.7) 0.0 x10^3/uL (0.0-0.7) 0.1 x10^3/uL (0.0-0.7) Basophils # (Auto) 0.0 x10^3/uL (0.0-0.2) 0.0 x10^3/uL (0.0-0.2) 0.0 x10^3/uL (0.0-0.2) Prothrombin Time 13.5 SEC (11.7-14.0) Prothromb Time International Ratio 1.1 (0.8-1.1) Activated Partial Thromboplast Time 28 SEC (24-38) Sodium Level 139 mmol/L (136-145) Potassium Level 3.7 mmol/L (3.5-5.1) Chloride Level 106 mmol/L (98-107) Carbon Dioxide Level 25 mmol/L (21-32) Anion Gap 8 (6-14) Blood Urea Nitrogen 14 mg/dL (7-20) Creatinine 0.8 mg/dL (0.6-1.0) Estimated GFR (Cockcroft-Gault) 79.9 Glucose Level 156 mg/dL (70-99) Calcium Level 8.1 mg/dL (8.5-10.1) Serum Test, Qualitative Negative (NEG) Medications Current Medications Sodium Chloride 1,000 ml @ 1,000 mls/hr 1X ONCE IV Last administered on 11/30/21at 02:30; Start 11/30/21 at 02:30; Stop 11/30/21 at 03:29; Status DC Fentanyl Citrate (Fentanyl 2ml Vial) 50 mcg 1X ONCE IVP ; Start 11/30/21 at 0 2:30; Stop 11/30/21 at 03:06; Status DC Iohexol (Omnipaque 300 Mg/ml) 75 ml 1X ONCE IV Last administered on 11/30/21at 03:15; Start 11/30/21 at 03:15; Stop 11/30/21 at 03:16; Status DC Ondansetron HCl (Zofran) 4 mg PRN Q8HRS PRN IVP NAUSEA/VOMITING; Start 11/30/21 at 06:00; Stop 11/30/21 at 08:38; Status DC Dextrose/Sodium Chloride 1,000 ml @ 100 mls/hr 1X ONCE IV Last administered on 11/30/21at 07:17; Start 11/30/21 at 06:00; Stop 11/30/21 at 15:59 Fentanyl Citrate (Fentanyl 2ml Vial) 50 mcg PRN Q2HRS PRN IVP pain Last administered on 11/30/21at 08:33; Start 11/30/21 at 06:00 Sennosides (Senna) 17.2 mg PRN BID PRN PO CONSTIPATION Last administered on 11/30/21at 11:54; Start 11/30/21 at 08:45 Docusate Sodium (Colace) 100 mg PRN DAILY PRN PO HARD STOOLS; Start 11/30/21 at 08:45 Ondansetron HCl (Zofran) 4 mg PRN Q6HRS PRN IVP NAUSEA/VOMITING, 1st CHOICE; Start 11/30/21 at 08:45 Dextrose (Dextrose 50%-Water Syringe) 12.5 gm PRN Q15MIN PRN IV SEE COMMENTS; Start 11/30/21 at 08:45 Sodium Chloride 1,000 ml @ 100 mls/hr Q10H IV ; Start 11/30/21 at 08:45 Acetaminophen (Tylenol) 650 mg PRN Q4HRS PRN PO TEMP OVER 100.4F OR MILD PAIN; Start 11/30/21 at 08:45 Lorazepam (Ativan) 0.5 mg PRN Q6HRS PRN PO ANXIETY / AGITATION; Start 11/30/21 at 08:45 Lorazepam (Ativan Inj) 0.25 mg PRN Q4HRS PRN IV ANXIETY / AGITATION; Start 11/30/21 at 08:45 Oxycodone/ Acetaminophen (Percocet 5/325) 1 tab PRN Q4HRS PRN PO MILD PAIN, 1ST CHOICE; Start 11/30/21 at 08:45 Oxycodone/ Acetaminophen (Percocet 5/325) 2 tab PRN Q4HRS PRN PO MODERATE PAIN, SEVERE PAIN; Start 11/30/21 at 08:45 Morphine Sulfate (Morphine Sulfate) 1 mg PRN Q1HR PRN IV PAIN; Start 11/30/21 at 08:45 Morphine Sulfate (Morphine Sulfate) 2 mg PRN Q2HR PRN IVP SEVERE PAIN 7-10; Start 11/30/21 at 08:45; Stop 12/01/21 at 08:44 Prochlorperazine Edisylate (Compazine) 10 mg PRN Q6HRS PRN IV NAUSEA/VOMITING, 2nd CHOICE; Start 11/30/21 at 08:45 Diphenhydramine HCl (Benadryl) 25 mg PRN Q6HRS PRN IVP ITCHING; Start 11/30/21 at 08:45 Diphenhydramine HCl (Benadryl) 25 mg PRN Q6HRS PRN PO ITCHING; Start 11/30/21 at 08:45 Diphenhydramine HCl (Benadryl) 25 mg PRN QHS PRN PO INSOMNIA, 1st CHOICE; St art 11/30/21 at 08:45 Zolpidem Tartrate (Ambien) 2.5 mg PRN QHS PRN PO INSOMNIA, 2nd CHOICE; Start 11/30/21 at 08:45 Vitals/I & O Vital Sign - Last 24 Hours 11/30/21 11/30/21 11/30/21 11/30/21 04:30 05:40 05:46 06:01 Temp 98.5 98.5 98.3 98.5 98.5 98.3 Pulse 87 85 78 Resp 16 16 20 B/P (MAP) 101/87 (92) 101/74 (83) 91/51 (64) Pulse Ox 98 98 100 O2 Delivery Room Air Room Air Room Air Room Air 11/30/21 11/30/21 11/30/21 11/30/21 08:00 08:33 09:03 11:00 Temp 98.2 98.2 Pulse 77 Resp 19 18 18 B/P (MAP) 83/35 (51) Pulse Ox 97 O2 Delivery Room Air Room Air Room Air Room Air Problem List Problems Medical Problems: (1) Anemia Status: Acute Assessment Rectal bleed- secondary to laceration with intercourse, medical therapy for now,. surgery if bleeding recurs with transanla approach serial hg Justicifation of Admission Dx: Justifications for Admission: Justification of Admission Dx: Yes DIA PIERCE MD Nov 30, 2021 12:51
[2021-11-30 15:00] VITALS: BP 81/34
[2021-11-30 19:00] VITALS: BP 107/43
[2021-11-30 23:00] VITALS: BP 99/40
[2021-12-01] MEDS: IV NORMAL SALINE 1000ML BAG 1,000 ML IV SCH ×2 (02:19→14:06)
[2021-12-01 03:00] VITALS: BP 86/39
[2021-12-01 05:19] LABS: BASO % 0 % (0-3); EOS # 0.1 x10^3/uL (0.0-0.7); EOS % 3 % (0-3); HEMATOCRIT 24.1 % (36.0-47.0); HEMOGLOBIN 7.9 g/dL (12.0-15.5); LYMPH # 2.5 x10^3/uL (1.0-4.8); LYMPH % 45 % (24-48); MEAN CORPUSCULAR HEMOGLOBIN 30 pg (25-35); MEAN CORPUSCULAR HGB CONC 33 g/dL (31-37); MEAN CORPUSCULAR VOLUME 91 fL (79-100); MONO # 0.4 x10^3/uL (0.0-1.1); MONO % 7 % (0-9); NEUT # 2.5 x10^3/uL (1.8-7.7); NEUT % 45 % (31-73); PLATELET COUNT 226 x10^3/uL (140-400); RED BLOOD COUNT 2.66 x10^6/uL (3.50-5.40); WHITE BLOOD COUNT 5.6 x10^3/uL (4.0-11.0)
[2021-12-01 05:56] LABS: CALCIUM 7.5 mg/dL (8.5-10.1); CREATININE 0.6 mg/dL (0.6-1.0); GFR 111.3; MAGNESIUM 1.8 mg/dL (1.8-2.4); PHOSPHORUS 3.4 mg/dL (2.6-4.7); POTASSIUM 3.3 mmol/L (3.5-5.1)
[2021-12-01 07:00] VITALS: BP 93/43
--- NOTE | 2021-12-01 09:35 | PDOC ---
TONIA AGUILAR [employer] 12/01/21 0935: SURGICAL PROGRESS NOTE DATE: 12/01/21 TIME: 09:33 Subjective less pain, less bleeding no nausea Vital Signs Vital Signs Date Time Temp Pulse Resp B/P (MAP) Pulse Ox O2 Delivery O2 Flow Rate FiO2 12/01/21 07:00 98.2 71 18 93/43 (60) 96 Room Air 98.2 I&O Intake and Output 12/01/21 07:00 Intake Total 0 ml Balance 0 ml Intake Oral 0 ml General: Alert, Oriented X3, Cooperative Abdomen: Soft, No tenderness Labs Laboratory Tests Test 11/30/21 02:15 11/30/21 07:30 11/30/21 10:30 12/01/21 04:30 White Blood Count 14.6 x10^3/uL (4.0-11.0) 9.5 x10^3/uL (4.0-11.0) 7.8 x10^3/uL (4.0-11.0) 5.6 x10^3/uL (4.0-11.0) Red Blood Count 3.41 x10^6/uL (3.50-5.40) 2.99 x10^6/uL (3.50-5.40) 2.90 x10^6/uL (3.50-5.40) 2.66 x10^6/uL (3.50-5.40) Hemoglobin 10.3 g/dL (12.0-15.5) 9.1 g/dL (12.0-15.5) 8.8 g/dL (12.0-15.5) 7.9 g/dL (12.0-15.5) Hematocrit 30.8 % (36.0-47.0) 26.9 % (36.0-47.0) 26.1 % (36.0-47.0) 24.1 % (36.0-47.0) Mean Corpuscular Volume 90 fL (79-100) 90 fL (79-100) 90 fL (79-100) 91 fL (79-100) Mean Corpuscular Hemoglobin 30 pg (25-35) 30 pg (25-35) 30 pg (25-35) 30 pg (25-35) Mean Corpuscular Hemoglobin Concent 33 g/dL (31-37) 34 g/dL (31-37) 34 g/dL (31-37) 33 g/dL (31-37) Red Cell Distribution Width 13.6 % (11.5-14.5) 13.7 % (11.5-14.5) 14.1 % (11.5-14.5) 14.0 % (11.5-14.5) Platelet Count 351 x10^3/uL (140-400) 267 x10^3/uL (140-400) 243 x10^3/uL (140-400) 226 x10^3/uL (140-400) Neutrophils (%) (Auto) 82 % (31-73) 76 % (31-73) 76 % (31-73) 45 % (31-73) Lymphocytes (%) (Auto) 13 % (24-48) 19 % (24-48) 17 % (24-48) 45 % (24-48) Monocytes (%) (Auto) 4 % (0-9) 5 % (0-9) 7 % (0-9) 7 % (0-9) Eosinophils (%) (Auto) 1 % (0-3) 1 % (0-3) 1 % (0-3) 3 % (0-3) Basophils (%) (Auto) 0 % (0-3) 0 % (0-3) 0 % (0-3) 0 % (0-3) Neutrophils # (Auto) 12.0 x10^3/uL (1.8-7.7) 7.2 x10^3/uL (1.8-7.7) 5.9 x10^3/uL (1.8-7.7) 2.5 x10^3/uL (1.8-7.7) Lymphocytes # (Auto) 1.9 x10^3/uL (1.0-4.8) 1.8 x10^3/uL (1.0-4.8) 1.3 x10^3/uL (1.0-4.8) 2.5 x10^3/uL (1.0-4.8) Monocytes # (Auto) 0.6 x10^3/uL (0.0-1.1) 0.5 x10^3/uL (0.0-1.1) 0.5 x10^3/uL (0.0-1.1) 0.4 x10^3/uL (0.0-1.1) Eosinophils # (Auto) 0.1 x10^3/uL (0.0-0.7) 0.0 x10^3/uL (0.0-0.7) 0.1 x10^3/uL (0.0-0.7) 0.1 x10^3/uL (0.0-0.7) Basophils # (Auto) 0.0 x10^3/uL (0.0-0.2) 0.0 x10^3/uL (0.0-0.2) 0.0 x10^3/uL (0.0-0.2) 0.0 x10^3/uL (0.0-0.2) Prothrombin Time 13.5 SEC (11.7-14.0) Prothromb Time International Ratio 1.1 (0.8-1.1) Activated Partial Thromboplast Time 28 SEC (24-38) Sodium Level 139 mmol/L (136-145) 143 mmol/L (136-145) Potassium Level 3.7 mmol/L (3.5-5.1) 3.3 mmol/L (3.5-5.1) Chloride Level 106 mmol/L (98-107) 112 mmol/L (98-107) Carbon Dioxide Level 25 mmol/L (21-32) 25 mmol/L (21-32) Anion Gap 8 (6-14) 6 (6-14) Blood Urea Nitrogen 14 mg/dL (7-20) 7 mg/dL (7-20) Creatinine 0.8 mg/dL (0.6-1.0) 0.6 mg/dL (0.6-1.0) Estimated GFR (Cockcroft-Gault) 79.9 111.3 Glucose Level 156 mg/dL (70-99) 86 mg/dL (70-99) Calcium Level 8.1 mg/dL (8.5-10.1) 7.5 mg/dL (8.5-10.1) Serum Test, Qualitative Negative (NEG) Phosphorus Level 3.4 mg/dL (2.6-4.7) Magnesium Level 1.8 mg/dL (1.8-2.4) Laboratory Tests Test 11/30/21 10:30 12/01/21 04:30 White Blood Count 7.8 x10^3/uL (4.0-11.0) 5.6 x10^3/uL (4.0-11.0) Red Blood Count 2.90 x10^6/uL (3.50-5.40) 2.66 x10^6/uL (3.50-5.40) Hemoglobin 8.8 g/dL (12.0-15.5) 7.9 g/dL (12.0-15.5) Hematocrit 26.1 % (36.0-47.0) 24.1 % (36.0-47.0) Mean Corpuscular Volume 90 fL (79-100) 91 fL (79-100) Mean Corpuscular Hemoglobin 30 pg (25-35) 30 pg (25-35) Mean Corpuscular Hemoglobin Concent 34 g/dL (31-37) 33 g/dL (31-37) Red Cell Distribution Width 14.1 % (11.5-14.5) 14.0 % (11.5-14.5) Platelet Count 243 x10^3/uL (140-400) 226 x10^3/uL (140-400) Neutrophils (%) (Auto) 76 % (31-73) 45 % (31-73) Lymphocytes (%) (Auto) 17 % (24-48) 45 % (24-48) Monocytes (%) (Auto) 7 % (0-9) 7 % (0-9) Eosinophils (%) (Auto) 1 % (0-3) 3 % (0-3) Basophils (%) (Auto) 0 % (0-3) 0 % (0-3) Neutrophils # (Auto) 5.9 x10^3/uL (1.8-7.7) 2.5 x10^3/uL (1.8-7.7) Lymphocytes # (Auto) 1.3 x10^3/uL (1.0-4.8) 2.5 x10^3/uL (1.0-4.8) Monocytes # (Auto) 0.5 x10^3/uL (0.0-1.1) 0.4 x10^3/uL (0.0-1.1) Eosinophils # (Auto) 0.1 x10^3/uL (0.0-0.7) 0.1 x10^3/uL (0.0-0.7) Basophils # (Auto) 0.0 x10^3/uL (0.0-0.2) 0.0 x10^3/uL (0.0-0.2) Sodium Level 143 mmol/L (136-145) Potassium Level 3.3 mmol/L (3.5-5.1) Chloride Level 112 mmol/L (98-107) Carbon Dioxide Level 25 mmol/L (21-32) Anion Gap 6 (6-14) Blood Urea Nitrogen 7 mg/dL (7-20) Creatinine 0.6 mg/dL (0.6-1.0) Estimated GFR (Cockcroft-Gault) 111.3 Glucose Level 86 mg/dL (70-99) Calcium Level 7.5 mg/dL (8.5-10.1) Phosphorus Level 3.4 mg/dL (2.6-4.7) Magnesium Level 1.8 mg/dL (1.8-2.4) Problem List Problems Medical Problems: (1) Anemia Status: Acute Assessment/Plan improvement in symptoms supportive care, should continue to resolve without intervention Justicifation of Admission Dx: Justifications for Admission: Justification of Admission Dx: Yes ANURAG MERINO MD 12/01/21 1029: SURGICAL PROGRESS NOTE Assessment/Plan Patient seen and examined. Clinically improving with less bleeding less pain continue to treat conservatively agree with Onur's assessment plan TONIA AGUILAR APRN Dec 01, 2021 09:35 ANURAG MERINO MD Dec 01, 2021 10:29
--- NOTE | 2021-12-01 09:53 | NUR ---
SW following. Discussed with RN, pt from home, room air, clear liquid diet. GI and Surgery following. Med Assist following for self pay status. SW will continue to follow.
[2021-12-01] MEDS ORDERED: POTASSIUM CHLORIDE 20 MEQ TABLET.ER. PO SCH (10:00)
[2021-12-01 11:00] VITALS: BP 91/36
--- NOTE | 2021-12-01 12:36 | PDOC ---
Date of Service: DATE: 12/01/21 TIME: 12:33 Subjective: Subjective: Says bleeding less. Was eating a [employer] shake. Says she was told she could go home today. Objective: Objective: Nurse reports Hgb being rechecked, pt has requested to advance diet, red blood without clots in toilet earlier. Vital Signs: Vital Signs Date Time Temp Pulse Resp B/P (MAP) Pulse Ox O2 Delivery O2 Flow Rate FiO2 12/01/21 11:00 98.3 80 18 91/36 (54) 99 Room Air 98.3 PE: GEN: NAD LUNGS: CTAB HEART: RRR ABD: NABS, S/ND/NT NEURO/PSYCH: A & O 3 A/P: Rectal trauma/bleeding Anemia -- Hgb drift since admission - to be rechecked this afternoon. Surgery following. Pt requesting DC. Justicifation of Admission Dx: Justifications for Admission: Justification of Admission Dx: Yes BINTA ZARCO Dec 01, 2021 12:36
[2021-12-01 15:00] VITALS: BP 107/47
--- NOTE | 2021-12-01 16:06 | DISCH ---
DISCHARGE INSTRUCTIONS Condition on Discharge Condition on Discharge: Stable Activity After Discharge Activity Instructions for Disc: Resume previous activity Follow-Up Follow up with: PCP within 2 weeks of discharge Follow Up With: Return to hospital if bleeding continues ARBEN BARAKAT MD Dec 01, 2021 16:06
--- NOTE | 2021-12-01 17:37 | NUR ---
Patient educated, IV, and telemonitor discontinued by this RN. Patient escorted to main entrance with by Brandi JENSEN.
== END 2021-12-01 17:32 | disposition home or self-care (01) ==
LOC: ER 01:38 → 5 NORTH 04:20
PROVIDERS: ADMIT Internal Medicine; ATTEND Internal Medicine
DX: S36.63XA Laceration of rectum, initial encounter (principal); K62.5 Hemorrhage of anus and rectum; D18.03 Hemangioma of intra-abdominal structures; D62 Acute posthemorrhagic anemia; X58.XXXA Exposure to other specified factors, initial encounter; Y93.89 Activity, other specified; Y92.89 Other specified places as the place of occurrence of the external cause
CPT/HCPCS: 36415; 74177; 80048; 83735; 84100; 84703; 85018; 85025; 85610; 85730; 86850; 86900; 86901; 96361; 96374; 99285; G0378; J3010; J7030; J7042; Q9967; 96360; G0379